=== PATIENT | female | born 1995 | race Caucasian/White ===

== ENCOUNTER 2019-01-16 08:17 | Emergency (ER) | payer BC, OTHER ==
[2019-01-16] MEDS ORDERED: Ketorolac 60 MG/2 ML SDV IM ONE (09:27)
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
== END 2019-01-16 10:00 | disposition home or self-care (01) ==
LOC: LL.ED 08:17
DX: S63.602A Unspecified sprain of left thumb, initial encounter (principal); S63.501A Unspecified sprain of right wrist, initial encounter; S63.502A Unspecified sprain of left wrist, initial encounter; Z88.1 Allergy status to other antibiotic agents; Z88.2 Allergy status to sulfonamides; Z88.5 Allergy status to narcotic agent; Z91.040 Latex allergy status; Y04.0XXA Assault by unarmed brawl or fight, initial encounter
CPT/HCPCS: 73130; 96372; 99283; J1885

== ENCOUNTER → 2019-04-21 | Outpatient (CLI) | payer BC, OTHER | LOC: LL.DI 10:29 | PROVIDERS: ATTEND Physician Assistant | DX: M25.562 Pain in left knee (principal) | CPT/HCPCS: 73562-LT ==

== ENCOUNTER 2019-05-14 06:09 | Emergency (ER) | payer BC, OTHER ==
[2019-05-14] MEDS ORDERED: Famotidine 20 MG/2 ML SDV IVPUSH ONE (06:29)
[2019-05-14] MEDS ORDERED: cefTRIAXone 1 GM in Sodium Chloride 0.9% 100 ML IV ONE (06:29)
[2019-05-14] MEDS ORDERED: Sodium Chloride 0.9% 10 ML Syringe FLUSH PRN (06:29)
[2019-05-14] MEDS ORDERED: Pantoprazole 40 MG Vial IVPUSH ONE (06:29)
[2019-05-14] MEDS ORDERED: Lactated Ringers 1,000 ML IV ONE (06:29)
[2019-05-14] MEDS ORDERED: metroNIDAZOLE/Normal Saline 500 MG in Premix Bag 1 BAG IV ONE (06:29)
[2019-05-14] MEDS ORDERED: Ondansetron 4 MG/2 ML SDV IVPUSH ONE (06:29)
--- NOTE | 2019-05-14 06:29 | EDM.PDOC ---
ED HPI GENERAL MEDICAL PROBLEM - General Chief Complaint: Gastrointestinal Problem Stated Complaint: Blood in stool and emesis Time Seen by Provider: 05/14/19 06:25 Source of Information: Reports: Patient, Family (Mother), Old Records ([facility] chart/EMR) History Limitations: Reports: No Limitations - History of Present Illness INITIAL COMMENTS - FREE TEXT/NARRATIVE: The patient was brought to the emergency room via private automobile by her mother for evaluation of a probable upper GI bleed. Note that the patient has had progressive melanotic stools during the last 2.5 days with about 3-4 bowel movements per day, which is normal for the patient. At about 05:30 a.m. this morning patient had a tablespoon amount of gross hematochezia with about 4 episodes of dry heaving and mild nausea at this time. She has had diffuse abdominal bloating and cramping, which she rates at about 5/10, however she has not taken any medications for her symptoms to this point. She denies any recent NSAID use, etc. No recent history of gross hematuria, colic, or UTI symptoms. Her LMP about one week ago was normal with a history of irregular menses as below. The patient also denies any recent fever, cough, wheezing, dyspnea, etc.. The patient denies any chest pain/pressure, heart flutter, orthostasis, orthopnea, diaphoresis, paresthesias, recent decreased exercise tolerance, or any other anginal-type symptoms, although some dizziness during the last couple of days. Onset: Other (As above) Onset Date: 05/11/19 Duration: Constant, Getting Worse Location: Reports: Abdomen. Denies: Head, Face, Neck, Chest, Back, Pelvis, Upper Extremity, Left, Upper Extremity, Right, Radiates to Quality: Reports: Other (As above) Severity: Moderate Improves with: Reports: None Worsens with: Reports: None Context: Reports: Other (As above). Denies: Sick Contact, Trauma Associated Symptoms: Reports: Loss of Appetite, Nausea/Vomiting. Denies: Confusion, Cough, Diaphoresis, Fever/Chills, Headaches, Malaise, Shortness of Breath, Syncope, Weakness Treatments SHIPPING AND RECEIVING WEIGHER: Reports: Other (see below) (None) Abdominal Pain Score (Numeric/FACES): 5 - Related Data Allergies Allergy/AdvReac Type Severity Reaction Status Date / Time adhesive tape Allergy Itching Verified 05/14/19 06:38 codeine Allergy Hyperactivi Verified 05/14/19 06:38 ty lactose Allergy Cannot Verified 05/14/19 06:38 Remember latex Allergy Hives Verified 05/14/19 06:38 morphine Allergy Itching Verified 05/14/19 06:38 Sulfa (Sulfonamide Allergy Cannot Verified 05/14/19 06:38 Antibiotics) Remember sulfamethoxazole Allergy Other Verified 05/14/19 06:38 [From Bactrim] trimethoprim [From Bactrim] Allergy Other Verified 05/14/19 06:38 Home Meds: Home Meds . [No Known Home Meds] 01/16/19 [History] Past Medical History HEENT History: Reports: Allergic Rhinitis, Impaired Vision, Sinusitis. Denies: Hard of Hearing, Otitis Media, Retinal Detachment Cardiovascular History: Reports: Arrhythmia, Hypertension, Syncope, Other (See Below). Denies: Afib, Aneurysm, Blood Clots/VTE/DVT, Heart Murmur, High Cholesterol Other Cardiovascular History: Hx of POTS (postural orthostatic tachycardia syndrome). History of recurrent syncope initially at age 11 with additional secondary to hypokalemia and then several episodes at age 14 however since that time. Respiratory History: Reports: Intubation, Previous. Denies: Asthma, Bronchitis , Recurrent, Intubation, Difficult, PE, Pneumothorax, Sleep Apnea Gastrointestinal History: Reports: Bowel Obstruction, Cholelithiasis, Gastritis , GERD, PUD. 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 Lactose intolerance. Multiple bowel obstructions. Intestinal atresia. Genitourinary History: Reports: STD, Other (See Below). Denies: Acute Renal Failure, Chronic Renal Insuffiency, Renal Calculus, Urinary Incontinence, UTI, Recurrent Other Genitourinary History: Gonorrhea and chlamydia in March 2018 which were treated. INBOUND CALL CENTER REPRESENTATIVE History: Reports: Polycystic Ovaries. Denies: Dysfunctional Uterine Bleeding, Endometriosis, Fibroids, Spontaneous : 0 LMP (Approximate): Other (See Below) Other INBOUND CALL CENTER REPRESENTATIVE History: Irregular menses. Musculoskeletal History: Reports: Fracture, Other (See Below). Denies: Arthritis, Back Pain, Chronic, Gout, Neck Pain, Chronic, RA, SLE Other Musculoskeletal History: Left wrist fracture on 10/30/08. Neurological History: Reports: Concussion, Headaches, Chronic, Head Trauma, Other (See Below). Denies: Cerebral Aneurysms, Neuropathy, Peripheral, Seizure , TIA Other Neuro History: Head concussion in August 2017. Developmental delay secondary to GI disorder as above. Psychiatric History: Reports: Anxiety, Depression. Denies: Abuse, Victim of, ADD, ADHD, Addiction, Psych Hospitalization(s), Psychosis, PTSD, Suicide Attempt , Suicidal Ideation Endocrine/Metabolic History: Reports: Obesity/BMI 30+. Denies: Diabetes, Type I , Diabetes, Type II, Diabetes Mellitus, Type 3c, Hypothyroidism, IDDM Hematologic History: Reports: Anemia, Blood Transfusion(s), Iron Deficiency, Other (See Below) Other Hematologic History: Fresh frozen plasma during abdominal surgeries but no blood transfusions. Immunologic History: Reports: None. Denies: AIDS, HIV, SLE Oncologic (Cancer) History: Reports: Cervix, Other (See Below). Denies: Basal Cell Carcinoma, Breast, Hodgkin's Lymphoma, Leukemia, Lymphoma, Malignant Melanoma, Non-Hodgkin's Lymphoma, Ovarian, Squamous Cell Carcinoma, Uterine Other Oncologic History: Abnormal Pap smear in May 2018 with normal follow- up colposcopy by patient history Dermatologic History: Reports: None. Denies: Eczema, Psoriasis - Infectious Disease History Infectious Disease History: Reports: Influenza, MRSA (Cellulitis bilateral axillary region at age 14.). Denies: C-Difficile, Chicken Pox, Measles, Meningitis, Mononucleosis, Mumps, Pertussis (Whooping Cough), Rheumatic Fever, Rubella, Scarlet Fever, Shingles, VRE - Past Surgical History Head Surgeries/Procedures: Reports: None HEENT Surgical History: Reports: Adenoidectomy, Oral Surgery, Tonsillectomy, Other (See Below). Denies: Cataract Surgery, Eye Surgery, Laser Surgery, LASIK , Myringotomy w Tube(s), Naso-Sinus Surgery Other HEENT Surgeries/Procedures: Tonsillectomy and adenoidectomy at age 6. [place] teeth extraction 4 in about 2011. Cardiovascular Surgical History: Reports: None. Denies: Varicose Respiratory Surgical History: Reports: None. Denies: Thoracentesis GI Surgical History: Reports: Colonoscopy, EGD Other GI Surgeries/Procedures: Last EGD and colonoscopy in about 2015 with multiple previous similar evaluations. Multiple GI surgeries over the years secondary to congenital malformation involving intestines/abdominal cavity, including jejunal web resection, duodenal/jejunal bypass and taping, revision of gastrostomy, laparoscopic wedge resection of redundant stomach and gastropexy at the [facility] on 12/05/09. Revision of anginal anastomosis, multiple laparoscopic adhesiolysis, Keegan fundoplication. Scopic cholecystectomy in 2016. Female Surgical History: Reports: Other (See Below). Denies: Breast Biopsy, Section, Cervical Conization, Cervical Cryotherapy, D&C, Oophorectomy, Salpingo-Oophorectomy, Tubal Ligation Other Female Surgeries/Procedures: Colposcopy as above. Endocrine Surgical History: Reports: None. Denies: Thyroid Biopsy Neurological Surgical History: Reports: None. Denies: C-Spine, Discectomy, Laminectomy, Lumbar Spine, Sacral Spine, Spinal Fusion, Thoracic Spine, Vertebroplasty Musculoskeletal Surgical History: Denies: Arthroscopic Procedure, Carpal Tunnel , Ganglion Cyst, Joint Replacement, ORIF, Shoulder Surgery Oncologic Surgical History: Reports: None Dermatological Surgical History: Reports: None - Past Imaging History Past Imaging History: Reports: CAT Scan (CT of the chest on 10/14/18. CT of the abdomen and pelvis on 10/05/09.), HIDA Scan (June 2012.), Ultrasound ( Abdominal and pelvic on 04/28/05.), Upper GI X-Ray/Series, Venous Doppler (Left leg on 10/29/07) Social & Family History - Family History Cardiac: Reports: Bypass, CAD, Heart Failure, High Cholesterol, Hypertension, Other (See Below). Denies: VT Other Cardiac Family History: Paternal grandfather with CABG in his 60s. Maternal grandfather with unknown type of heart disease. Maternal uncle with valve replacement with no history of rheumatic fever. Father with CHF. Mother with mitral valve prolapse. Maternal and paternal grandparents and parents with hypertension and hyperlipidemia. Neurological: Reports: CVA, Other (See Below). Denies: TIA Other Neurological Family History: Paternal mother with CVA in her 50s. Endocrine/Metabolic: Reports: Hypothyroidism, Other (See Below) Other Endocrine/Metabolic Family History: Mother with hypothyroidism. - Tobacco Use Smoking Status *Q: Current Every Day Smoker Tobacco Use Within Last Twelve Months: Snuff/Dip Years of Tobacco use: 6 Packs/Tins Daily: 0.3 Packs/Tins Daily Comment: Started using chewing tobacco at age 17. Used Tobacco, but Quit: Yes Smoking Cessation Information Provided To Patient: No Second Hand Smoke Exposure: No Second Hand Smoke Education Provided: No - Caffeine Use Caffeine Use: Reports: Coffee (5 cups per day any), Energy Drinks (2 cans per week). Denies: Soda, Tea - Alcohol Use Alcohol Use History: Yes Days Per Week of Alcohol Use: 3 Number of Drinks Per Day: 6 Number of Drinks Per Day Comment: Usually mixed drinks. No previous DWIs, problems with alcohol abuse, etc. Total Drinks Per Week: 18 Alcohol Use in Last Twelve Months: Yes - Recreational Drug Use Recreational Drug Use: No Drug Use in Last 12 Months: No Recreational Drug Type: Denies: Amphetamines (Speed), Cocaine, Heroin, Inhalants (Glues, Solvents, Aerosols), LSD (Acid), Marijuana/Hashish, Methamphetamine, Morphine, Oxycodone - Living Situation & Occupation Living situation: Reports: Single, Alone Occupation: Employed ([email or web address] ED ROS GENERAL - Review of Systems Review Of Systems: Comprehensive ROS is negative, except as noted in HPI. ED EXAM, GI/ABD - Physical Exam Exam: See Below Exam Limited By: No Limitations General Appearance: Alert, WD/WN, No Apparent Distress Eyes: Bilateral: Normal Appearance (No nystagmus), EOMI Ears: Normal External Exam, Normal Canal, Hearing Grossly Normal, Normal TMs Nose: Normal Inspection, Normal Mucosa, No Blood Throat/Mouth: Normal Inspection, Normal Lips, Normal Teeth, Normal Gums, Normal Oropharynx, Normal Voice, No Airway Compromise. No: Dysphagia, Perioral Cyanosis Head: Atraumatic, Normocephalic. No: Facial Swelling, Facial Tenderness Neck: Normal Inspection, Supple, Non-Tender, Full Range of Motion. No: Lymphadenopathy (L), Lymphadenopathy (R), Thyromegaly Respiratory/Chest: No Respiratory Distress, Lungs Clear, Normal Breath Sounds, No Accessory Muscle Use, Chest Non-Tender. No: Pleural Rub, Retractions Cardiovascular: Normal Peripheral Pulses, No Edema, No Gallop, No JVD, No Murmur , No Rub, Tachycardia (Regular rhythm). No: Gallop/S3, Gallop/S4, Friction Rub GI/Abdominal Exam: Normal Bowel Sounds, Soft, Non-Tender, No Organomegaly, No Distention, No Abnormal Bruit, No Mass, Pelvis Stable, Other (Obese). No: Guarding (Female) Exam: Deferred Rectal (Female) Exam: Black Stool, Heme + Stool. No: Mass, Rectal Fissure, Tenderness (No Raj space tenderness) Back Exam: Normal Inspection, Full Range of Motion. No: CVA Tenderness (L), CVA Tenderness (R), Muscle Spasm Extremities: Normal Inspection, Normal Range of Motion, Non-Tender, No Pedal Edema, Normal Capillary Refill. No: Eloise's Sign Neurological: Alert, Oriented, CN II-XII Intact, Normal Cognition, Normal Gait, Normal Reflexes (Negative Babinski's), No Motor/Sensory Deficits Psychiatric: Normal Affect, Normal Mood Skin Exam: Warm, Dry, Intact, Normal Color, No Rash, Stud(s) (Umbilical, auricular). No: Diaphoretic, Wound/Incision Lymphatic: No Adenopathy Course - Vital Signs Last Recorded V/S: Last Vital Signs Temp 36.1 C 05/14/19 06:10 Pulse 101 H 05/14/19 07:45 Resp 20 05/14/19 07:45 BP 122/76 05/14/19 07:45 Pulse Ox 99 05/14/19 07:45 Vital Signs - 24 hr 05/14/19 05/14/19 05/14/19 06:09 06:10 07:45 Temperature [ 36.1 C Temporal] Pulse, 124 H 120 H 101 H Peripheral [ Pulse Oximetry] Respiratory 20 16 20 Rate Blood Pressure 132/86 132/86 122/76 [Left Upper Arm ] O2 Sat by Pulse 96 99 Oximetry - Orders/Labs/Meds Orders: Active Orders 24 hr Category Date Time Status Cardiac Monitoring [RC] . DIRECTED Care 05/14/19 06:37 Active Peripheral IV Care [RC] . DIRECTED Care 05/14/19 06:30 Active Abdomen Series w Chest 1V [CR] Stat Exams 05/14/19 06:29 Taken Obtain Past Medical Record [OM.PC] Urgent Oth 05/14/19 06:29 Active Peripheral IV Insertion Adult [OM.PC] Stat Oth 05/14/19 06:29 Ordered Resuscitation Status Stat Resus Stat 05/14/19 06:29 Ordered Labs: Laboratory Tests 05/14/19 05/14/19 05/14/19 Range/Units 06:18 06:18 06:18 WBC 7.2 (4.0-10.2) K/uL RBC 3.49 L (3.77-5.09) M/uL Hgb 10.7 L D (11.7-15.5) g/dL Hct 31.8 L (34.0-46.0) % MCV 91.1 (84.0-98.0) fL MCH 30.7 (28.2-33.3) pg MCHC 33.6 (31.7-36.0) g/dL RDW 13.2 (11.2-14.1) % Plt Count 274 (150-350) K/uL Neut % (Auto) 63.5 (45.0-80.0) % Lymph % (Auto) 25.8 (10.0-50.0) % Kent % (Auto) 8.9 (2.0-14.0) % Eos % (Auto) 1.5 (0.0-5.0) % Baso % (Auto) 0.3 (0.0-2.0) % Neut # (Auto) 4.56 (1.40-7.00) K/uL Lymph # (Auto) 1.85 (0.50-3.50) K/uL Kent # (Auto) 0.64 (0.00-1.00) K/uL Eos # (Auto) 0.11 (0.00-0.50) K/uL Baso # (Auto) 0.02 (0.00-0.20) K/uL PT 11.6 (9.5-12.0) SEC INR 1.1 APTT 25.7 (21.0-31.3) SEC Sodium (136-145) mmol/L Potassium (3.5-5.1) mmol/L Chloride (98-107) mmol/L Carbon Dioxide (21.0-32.0) mmol/L BUN (7-18) mg/dL Creatinine (0.51-1.17) mg/dL Est Cr Clr Drug Dosing mL/min Estimated GFR (MDRD) mL/min Glucose (74-106) mg/dL Lactic Acid (0.4-2.0) mmol/L Uric Acid (2.6-7.2) mg/dL Calcium (8.5-10.1) mg/dL Magnesium (1.8-2.4) mg/dL Total Bilirubin (0.2-1.0) mg/dL AST (15-37) U/L ALT (12-78) U/L Alkaline Phosphatase (46-116) IU/L Total Protein (6.4-8.2) g/dL Albumin (3.4-5.0) g/dL Amylase 52 (25-115) U/L Lipase (73-393) U/L HCG, Qual (NEGATIVE) 05/14/19 05/14/19 05/14/19 Range/Units 06:18 06:18 06:18 WBC (4.0-10.2) K/uL RBC (3.77-5.09) M/uL Hgb (11.7-15.5) g/dL Hct (34.0-46.0) % MCV (84.0-98.0) fL MCH (28.2-33.3) pg MCHC (31.7-36.0) g/dL RDW (11.2-14.1) % Plt Count (150-350) K/uL Neut % (Auto) (45.0-80.0) % Lymph % (Auto) (10.0-50.0) % Kent % (Auto) (2.0-14.0) % Eos % (Auto) (0.0-5.0) % Baso % (Auto) (0.0-2.0) % Neut # (Auto) (1.40-7.00) K/uL Lymph # (Auto) (0.50-3.50) K/uL Kent # (Auto) (0.00-1.00) K/uL Eos # (Auto) (0.00-0.50) K/uL Baso # (Auto) (0.00-0.20) K/uL PT (9.5-12.0) SEC INR APTT (21.0-31.3) SEC Sodium 139 (136-145) mmol/L Potassium 3.7 (3.5-5.1) mmol/L Chloride 104 (98-107) mmol/L Carbon Dioxide 24.7 (21.0-32.0) mmol/L BUN 38 H (7-18) mg/dL Creatinine 0.78 (0.51-1.17) mg/dL Est Cr Clr Drug Dosing 101.80 mL/min Estimated GFR (MDRD) > 60 mL/min Glucose 100 (74-106) mg/dL Lactic Acid 0.8 (0.4-2.0) mmol/L Uric Acid 4.6 (2.6-7.2) mg/dL Calcium 8.1 L (8.5-10.1) mg/dL Magnesium 1.5 L (1.8-2.4) mg/dL Total Bilirubin 0.3 (0.2-1.0) mg/dL AST 29 (15-37) U/L ALT 53 (12-78) U/L Alkaline Phosphatase 76 (46-116) IU/L Total Protein 6.0 L (6.4-8.2) g/dL Albumin 3.0 L (3.4-5.0) g/dL Amylase (25-115) U/L Lipase 85 (73-393) U/L HCG, Qual Negative (NEGATIVE) Microbiology 05/14/19 06:45 Stool Occult Blood (VIDA) - Final Stool / Feces Hemoccult positive Meds: Medications Discontinued Medications Generic Name Dose Route Start Last Admin Trade Name Brenda PRN Reason Stop Dose Admin Famotidine 40 mg 05/14/19 06:29 05/14/19 06:40 Pepcid IVPUSH 05/14/19 06:30 40 mg ONETIME ONE Administration Ceftriaxone Sodium 1 gm/ 100 mls @ 200 mls/hr 05/14/19 06:29 Sodium Chloride IV 05/14/19 06:58 ONETIME ONE Lactated Ringer's 1,000 mls @ 999 mls/hr 05/14/19 06:29 05/14/19 06:52 Ringers, Lactated IV 05/14/19 07:29 999 mls/hr .BOLUS ONE Administration Metronidazole 500 mg/ Premix 100 mls @ 100 mls/hr 05/14/19 06:29 IV 05/14/19 07:28 ONETIME ONE Lactated Ringer's 1,000 mls @ 125 mls/hr 05/14/19 08:00 05/14/19 07:59 Ringers, Lactated IV 125 mls/hr ASDIRECTED CORDELIA Administration Ondansetron HCl 4 mg 05/14/19 06:29 05/14/19 06:44 Zofran IVPUSH 05/14/19 06:30 4 mg ONETIME ONE Administration Pantoprazole Sodium 40 mg 05/14/19 06:29 05/14/19 06:46 Protonix Iv IVPUSH 05/14/19 06:30 40 mg ONETIME ONE Administration Sodium Chloride 10 ml 05/14/19 06:29 05/14/19 06:43 Saline Flush FLUSH 10 ml ASDIRECTED PRN Administration Keep Vein Open - Radiology Interpretation Free Text/Narrative:: weighing station operator showed initial sinus tachycardia in the 120s with improvement to the 90s-100's prior to transfer. No extrasystoles or arrhythmia Acute abdominal x-rays shows evidence of a mildly increased non-specific bowel gaseous pattern with no free air, ileus, obstruction, pulmonary infiltrates, cardiomegaly, pneumothorax, etc. Note status post multiple abdominal surgeries with surgical clips noted. Official x-ray report received after the patient left the ER indicates possible beginning ileus versus low-grade obstruction. Departure - Departure Time of Disposition: 08:13 Disposition: DC/Tfer to [facility] 02 Condition: Good Clinical Impression: Hypocalcemia, Hypomagnesemia, Hypoalbuminemia - Discharge Information *PRESCRIPTION DRUG MONITORING PROGRAM REVIEWED*: Not Applicable *COPY OF PRESCRIPTION DRUG MONITORING REPORT IN PATIENT SONIA: Not Applicable Referrals: Catia Self NP [Primary Care Provider] - Forms: ED Department Discharge, Interfacility Transfer [facility] Sepsis Event Note - Focused Exam Vital Signs: Vital Signs Temp Pulse Resp BP Pulse Ox 05/14/19 07:45 101 H 20 122/76 99 05/14/19 06:10 36.1 C 120 H 16 132/86 96 05/14/19 06:09 124 H 20 132/86 Date Exam was Performed: 05/14/19 Time Exam was Performed: 08:55 - Problem List & Annotations (1) Upper GI bleed SNOMED Code(s): 39850363 Code(s): K92.2 - GASTROINTESTINAL HEMORRHAGE, UNSPECIFIED Status: Acute Priority: High Onset Date: ~05/11/19 Annotation/Comment:: Patient was aggressively treated on arrival with high-dose IV Pepcid and IV Protonix. A 1 L IV bolus of lactated Ringer's was given with continuation of IV fluids at 125 ml /hr prior to and during transfer. Telephone consultation at 07:[address] Douglass, hospitalist at [facility] in [place], who does accept the patient for further treatment and evaluation. Per their instructions previously ordered IV Rocephin and IV Flagyl will not be given at this time. Vital signs were stable prior to transfer with improvement of her previous tachycardias to the 90s to low 100s as above. Ambulance transfer with animal shelter clerk. (2) Peptic ulcer disease SNOMED Code(s): 62275255 Code(s): K27.9 - PEPTIC ULC, SITE UNSP, UNSP AC OR CHR, W/O HEMOR OR PERF Status: Acute Priority: High Annotation/Comment:: History of recurrent gastric ulcers with no previous history of significant upper GI bleed. No congenital GI abnormalities requiring multiple surgeries as above. (3) Mixed anxiety depressive disorder SNOMED Code(s): 398382573 Code(s): F41.8 - OTHER SPECIFIED ANXIETY DISORDERS Status: Chronic Priority: Medium Annotation/Comment:: Increased stressors now secondary to her father's heart illness. Emotional support was provided. Continue to observe closely by her regular providers. (4) Hypoalbuminemia SNOMED Code(s): 156220480 Code(s): E88.09 - OTH DISORDERS OF PLASMA-PROTEIN METABOLISM, NEC Status: Acute Priority: Medium Onset Date: 05/14/19 Annotation/Comment:: Observe for now (5) Hypocalcemia SNOMED Code(s): 3735443 Code(s): E83.51 - HYPOCALCEMIA Status: Acute Priority: Medium Onset Date: 05/14/19 Annotation/Comment:: Observe for now (6) Hypomagnesemia SNOMED Code(s): 735013205 Code(s): E83.42 - HYPOMAGNESEMIA Status: Acute Priority: Medium Onset Date: 05/14/19 Annotation/Comment:: Patient may benefit from IV magnesium sulfate and/or oral magnesium oxide per discretion of the accepting providers. - Problem List Review Problem List Initiated/Reviewed/Updated: Yes - My Orders Last 24 Hours: My Active Orders 05/14/19 06:29 Abdomen Series w Chest 1V [CR] Stat Obtain Past Medical Record [OM.PC] Urgent Peripheral IV Insertion Adult [OM.PC] Stat Resuscitation Status Stat 05/14/19 06:30 Peripheral IV Care [RC] . DIRECTED 05/14/19 06:37 Cardiac Monitoring [RC] . DIRECTED - Assessment/Plan Last 24 Hours: My Active Orders 05/14/19 06:29 Abdomen Series w Chest 1V [CR] Stat Obtain Past Medical Record [OM.PC] Urgent Peripheral IV Insertion Adult [OM.PC] Stat Resuscitation Status Stat 05/14/19 06:30 Peripheral IV Care [RC] . DIRECTED 05/14/19 06:37 Cardiac Monitoring [RC] . DIRECTED Assessment:: As above. Plan: As above. Extensive precautions were given to the patient and her mother, who are in agreement with the treatment plan. Ambulance transfer with animal shelter clerk accompaniment as above.
[2019-05-14] MEDS ORDERED: Lactated Ringers 1,000 ML IV SCH (08:00)
[2019-05-14 08:20] LABS: CHLORIDE,CL 104 mmol/L (98-107); SODIUM,NA 139 mmol/L (136-145)
== END 2019-05-14 08:11 ==
LOC: LL.ED 06:09
DX: E83.51 Hypocalcemia (principal); E83.42 Hypomagnesemia; E88.09 Other disorders of plasma-protein metabolism, not elsewhere classified; I10 Essential (primary) hypertension; F17.210 Nicotine dependence, cigarettes, uncomplicated; F17.220 Nicotine dependence, chewing tobacco, uncomplicated; E66.9 Obesity, unspecified; Z68.33 Body mass index [BMI] 33.0-33.9, adult; Z88.1 Allergy status to other antibiotic agents; Z91.040 Latex allergy status; Z91.011 Allergy to milk products; Z88.5 Allergy status to narcotic agent; Z88.2 Allergy status to sulfonamides; Z91.048 Other nonmedicinal substance allergy status
CPT/HCPCS: 36415; 74022; 80053; 82150; 82272; 83605; 83690; 83735; 84550; 84703; 85025; 85610; 85730; 96361; 96374; 96375; 99285; C9113; J2405; J3490; J7120

== ENCOUNTER 2021-09-01 01:30 | Emergency (ER) | payer BC, OTHER ==
[2021-09-01] MEDS ORDERED: Silver Sulfadiazine 1% Crm 400 GM Jar TOP ONE (01:51)
== END 2021-09-01 02:20 | disposition home or self-care (01) ==
LOC: LL.ED 01:30
DX: T22.141A Burn of first degree of right axilla, initial encounter (principal); T22.121A Burn of first degree of right elbow, initial encounter; T23.101A Burn of first degree of right hand, unspecified site, initial encounter; T22.111A Burn of first degree of right forearm, initial encounter; I10 Essential (primary) hypertension; E66.9 Obesity, unspecified; Z91.09 Other allergy status, other than to drugs and biological substances; Z88.2 Allergy status to sulfonamides; Z91.011 Allergy to milk products; X10.2XXA Contact with fats and cooking oils, initial encounter
CPT/HCPCS: 16020; 99283; 99283-25; A9270-GY